=== PATIENT | male | born 1970 | race Caucasian/White ===

== ENCOUNTER 2017-03-17 15:29 | Emergency (ER) | payer BC ==
--- NOTE | ~2017-03-17 | CR63 ---
[facility] A Service of [facility] & [facility] RADIOLOGY TEXT RESULTS PATIENT: ANDRÉS LANE LOCATION: SED : 66 UNIT #: [id number] AGE: [address]: RENALDO MONACO SEX: M ORDER DR: [id number] [place] [id number] MR#: [id number] Acc #: [id number] NAME: ANDR[address]S [address]. : 1970 SEX: M STUDY DATE/TIME: 03/17/2017 17:25 UNIT: SED ROOM: STUDY DESCRIPTION: CR Chest 2 View Attending Physician: Renaldo Monaco Aprn Ordering Physician: Renaldo Monaco Aprn Primary Care Physician: Primary Care Physician No MEDICAL IMAGING REPORT This report is preliminary unless electronic signature is present. EXAM Chest PA and lateral 03/17/2017 HISTORY Left-sided chest pain and left upper back pain beginning today at 1:00 p.m. after sneezing. Smoking history. FINDINGS Two views of the chest were obtained. The lungs are clear. The heart and mediastinum have a normal contour, and the heart size is normal. No pleural effusions are seen. The lungs are hyperinflated, consistent with chronic obstructive pulmonary disease. There is no evidence of active disease. IMPRESSION Chronic obstructive pulmonary disease. No active disease. Dictated by... Fernando Huerta M.D. THIS IS AN ELECTRONICALLY VERIFIED REPORT Fernando Huerta M.D. at 03/18/2017 2:13 PM KIKI/zafar TD: 03/18/2017 09:27 JOB #: [id number] MEDICAL IMAGING REPORT Page 1 of 1
[~2017-03-17 15:29] MED LIST: ERYPED OD
[2017-03-17 17:04] LABS: URINE SOURCE CLEAN CATCH
[2017-03-17 17:07] LABS: MICRO INDICATED? YES; URINE APPEARANCE CLEAR; URINE BILIRUBIN NEG (NEG); URINE BLOOD TRACE-INTACT (NEG); URINE COLOR YELLOW; URINE GLUCOSE NEG (NORM); URINE KETONE NEG (NEG); URINE LEUKOCYTE ESTERASE NEG (NEG); URINE NITRATE NEG (NEG); URINE PH 5.5 (5-8); URINE PROTEIN NEG (NEG); URINE UROBILINOGEN 0.2 MG/DL (NORM)
[2017-03-17 17:40] LABS: CULTURE INDICATED? NO; URINE BACTERIA NEG (NEG); URINE RBC 0-2 /[HPF] (0-2); URINE WBC 0-2 /[HPF] (0-5)
== END 2017-03-17 18:20 | disposition home or self-care (01) ==
LOC: SED 15:29
PROVIDERS: Nurse Practitioner
DX: M94.0 Chondrocostal junction syndrome [Tietze] (principal); F17.210 Nicotine dependence, cigarettes, uncomplicated
CPT/HCPCS: 71020; 81003; 99283